=== PATIENT | male | born 1955 | race Caucasian/White ===

== ENCOUNTER → 2016-07-17 | Day surgery (SDC) | payer BC ==
[~2016-07-17] MED LIST: BUPIVACAINE HCL PF 0.25% 30 ML VIAL ONE; BUPIVACAINE/EPINEPHRINE 0.25% 50 ML VIAL ONE; KETOROLAC TROMETHAMINE 30 MG/ML (IVP) VIAL IV PUSH ONE; LACTATED RINGER'S 1000 ML INJ 1,000 ML ONE; LIDOCAINE 1%/EPINEPHrine 1:100,000 SOLN 20 ML VIAL ONE; MIDAZOLAM HCL 2 MG/2 ML VIAL ONE; ONDANSETRON HCL 4 MG/2 ML VIAL IV PUSH ONE; PROPOFOL 200 MG/20 ML AMP IV ONE; ceFAZolin 2 GM PREMIX 50 ML ONE
--- NOTE | 2016-07-17 09:24 | TN ---
cc: DMITRI LE MD DATE OF SURGERY 07/17/2016 PREOPERATIVE DIAGNOSIS Lipoma of the posterior neck sebaceous cyst of left neck. PROCEDURE Excision of lipoma posterior neck and excision of sebaceous cyst left neck. POSTOPERATIVE DIAGNOSIS Lipoma of the posterior neck sebaceous cyst of left neck. SURGEON Dmitri Le MD [employer] Staff SPECIMENS Lipoma of the posterior neck and left neck mass. ESTIMATED BLOOD LOSS 5 cc ANESTHESIA General endotracheal anesthesia PROCEDURE IN DETAIL The patient was taken to the operating room and placed in a supine position. General endotracheal anesthesia was induced. He was then placed prone. The posterior neck was prepped and draped in the usual sterile fashion. A surgical time-out was performed to verify correct patient, procedure and site. The patient was administered antibiotics preoperatively. First, a transverse incision in the mid posterior neck was made and a lipoma 5 x 5 cm was removed using electrocautery and blunt dissection. There was minimal bleeding and hemostasis was achieved with electrocautery. The wound was irrigated and then closed the deep layer with 3-0 Vicryl interrupted sutures, skin with 4-0 Monocryl subcuticular as well as Dermabond. Attention was then turned to a small left neck mass most likely a sebaceous cyst. Local anesthetic was injected and the cyst was elliptically excised. The cyst was less than 1 cm. Hemostasis was achieved and the skin was closed with a single 4-0 Monocryl, as well as Dermabond. The patient tolerated the procedure well, was exudate and taken to PACU in stable condition. MD FINN Brooks/MILLICENT /9:15 AM /9:21 AM INGRID
== END | disposition home or self-care (01) ==
LOC: ESDC 06:38
PROVIDERS: ATTEND Surgery
DX: D17.0 Benign lipomatous neoplasm of skin and subcutaneous tissue of head, face and neck (principal); L72.0 Epidermal cyst
CPT/HCPCS: 00300; 11422; 21552; 88304; 88305; J0690; J1885; J2250; J2405; J3010; J7120